=== PATIENT | female | born 1975 | race Caucasian/White ===

== ENCOUNTER 2017-10-04 18:20 | Emergency (ER) | payer OTHER ==
[~2017-10-04] VITALS: Ht 167.6 cm; Wt 68.0 kg
[~2017-10-04 18:20] MED LIST: ALBUTEROL S2.5 MG/.5 IN; ALPRAZOLAM0.25 M1 PO; AMOXICILLIN500 MG PO; CIPRO500 MG OR; CIPRO500 MG PO; CIPROFLOXACN500 MG PO; DIFLUCAN150 MG PO; LEVAQUIN500 MG PO; MULTI VIT OR; NAPROSYN500 MG PO; NO MEDS; PREDNISONE10 MG PO; ZITHROMAX250 MG OR; ZITHROMAX250 MG PO; [UNRECOGNIZED DRUG - OTHER] OR
[2017-10-04] MEDS ORDERED: VISTARIL 50MG C50 MG PO (18:59)
[2017-10-04] MEDS ORDERED: MEDDOSEPAK PO (18:59)
[2017-10-04 19:09] VITALS: BP 104/70
== END 2017-10-04 19:20 | disposition home or self-care (01) | DRG 607 ==
LOC: ED 18:20
DX: L30.9 Dermatitis, unspecified (principal); L29.9 Pruritus, unspecified

== ENCOUNTER 2017-11-25 20:43 | Emergency (ER) | payer OTHER ==
[~2017-11-25] VITALS: Ht 167.6 cm; Wt 72.0 kg
[~2017-11-25 20:43] MED LIST changes: +MEDDOSEPAK PO; +VISTARIL 50MG C50 MG PO
[2017-11-25 22:04] LABS: URINE BILIRUBIN - DIPSTICK NEGATIVE (NEGATIVE); URINE BLOOD DIPSTICK NEGATIVE (NEGATIVE); URINE COLOR YELLOW; URINE GLUCOSE - DIPSTICK NEGATIVE (NEGATIVE); URINE KETONE NEGATIVE (NEGATIVE); URINE LEUK ESTERASE NEGATIVE (NEGATIVE); URINE PH 5.5 (4.5-8.0); URINE PROTEIN - DIPSTICK NEGATIVE (NEG-TRACE); URINE SPECIFIC GRAVITY >=1.030; URINE UROBILINOGEN - DIPSTICK 0.2 E.U./dL (0.2)
[2017-11-25 22:06] LABS: URINE CLARITY CLEAR; URINE NITRITE - DIPSTICK POSITIVE (Negative)
[2017-11-25 22:13] LABS: URINE BACTERIA RARE hpf; URINE RBC 0-2 RBC/hpf (0-5); URINE SQUAMOUS EPITHELIAL CELL FEW EPI/hpf (0-FEW); URINE WBC 0-2 WBC/hpf (0-5)
[2017-11-25] MEDS ORDERED: LORTAB 1010 MG PO (23:16)
[2017-11-25] MEDS ORDERED: FLEXERIL PO (23:16)
[2017-11-25] MEDS ORDERED: MEDDOSEPAK PO (23:17)
[2017-11-25 23:41] VITALS: BP 104/72
--- NOTE | 2017-11-27 12:03 | NUR ---
Review of ED urine culture from 11/25/17, final shows >100,000 CFU/ML E.Coli sensitive to all tested antibiotics, including cephalosporins. Pt, 42yo F, presented to ED c/o lower back pain with recent hx of back pain after a fall. Denies any dysuria, fever. Pt DC with a clinical impression of lumbar disc DJD, sciatica. Based on urine culture, a rx ordered by DR Macario for keflex 500mg bid 10d was called to [facility] at [phone] and pt was informed at [phone].
== END 2017-11-25 23:43 | disposition home or self-care (01) | DRG 552 ==
LOC: ED 20:43
PROVIDERS: Emergency Medicine
DX: M47.816 Spondylosis without myelopathy or radiculopathy, lumbar region (principal); M54.41 Lumbago with sciatica, right side

== ENCOUNTER 2018-01-11 09:36 | Emergency (ER) | payer OTHER ==
[~2018-01-11] VITALS: Ht 167.6 cm; Wt 70.0 kg
[~2018-01-11 09:36] MED LIST changes: +FLEXERIL PO; +LORTAB 1010 MG PO
[2018-01-11] MEDS ORDERED: ULTRAM50 M1 PO (11:47)
[2018-01-11 12:09] VITALS: BP 129/81
== END 2018-01-11 12:09 | disposition home or self-care (01) | DRG 87 ==
LOC: ED 09:36
DX: S06.9X1A Unspecified intracranial injury with loss of consciousness of 30 minutes or less, initial encounter (principal); W22.8XXA Striking against or struck by other objects, initial encounter; Y93.89 Activity, other specified; Y92.009 Unspecified place in unspecified non-institutional (private) residence as the place of occurrence of the external cause

== ENCOUNTER 2018-03-07 12:50 | Emergency (ER) | payer OTHER ==
[~2018-03-07] VITALS: Ht 167.6 cm; Wt 75.0 kg
[~2018-03-07 12:50] MED LIST changes: +ULTRAM50 M1 PO
[2018-03-07] MEDS ORDERED: MOTRIN800 MG PO (13:32)
[2018-03-07] MEDS ORDERED: ZITHROMAX250 MG PO (13:32)
[2018-03-07] MEDS ORDERED: VENTOLIN HFA IN (13:32)
[2018-03-07] MEDS ORDERED: PREDNISONE50 MG PO (13:32)
[2018-03-07] MEDS ORDERED: TESSALON PER100 MG PO (13:32)
[2018-03-07 13:37] LABS: HEMATOCRIT 38.9 % (37.0-47.0); IMMATURE GRANULOCYTES 0.3 % (0.0-1.0); MEAN CORPUSCULAR HGB 30.8 pG CALC (26.0-32.0); MEAN CORPUSCULAR HGB CONC 33.7 g/L CALC (32.0-36.0); NEUT# 6.52 thou/uL (2.00-7.15); RED BLOOD COUNT 4.26 mill/uL (4.20-5.60); RED CELL DISTRI WIDTH 12.8 % (11.5-15.5)
[2018-03-07 13:38] LABS: HEMOGLOBIN 13.1 g/dl (12.0-16.0); MEAN CELL VOLUME 91.3 fL CALC (80.0-100.0)
[2018-03-07 13:52] LABS: ALBUMIN 4.6 g/dL (3.2-5.0); ALKALINE PHOSPHATASE 69 u/l (38-126); ANION GAP 13 (6-22 (CALC)); BILIRUBIN, TOTAL 0.4 mg/dL (0.0-1.4); BUN 9 mg/dL (7-17); BUN/CREATININE RATIO 15 (12-20 (CALC)); CARBON DIOXIDE 26 mmol/l (22-30); CHLORIDE 107 mmol/l (95-108); CREATININE 0.6 mg/dL (0.5-1.0); GFR > 60 ML/MIN (>=60 (CALC)); GFR FOR AFR.AMER. > 60 ML/MIN (>=60 (CALC)); SGOT/AST 36 u/l (14-36); SGPT/ALT 44 u/l (9-52); SODIUM 141 mmol/l (137-146); TOTAL PROTEIN 7.9 g/dL (6.3-8.2)
[2018-03-07 14:04] LABS: MYOGLOBIN 21 ng/mL (0 - 62)
[2018-03-07 14:29] VITALS: BP 118/71
== END 2018-03-07 14:41 | disposition home or self-care (01) | DRG 203 ==
LOC: ED 12:50
PROVIDERS: Emergency Medicine
DX: J20.9 Acute bronchitis, unspecified (principal); R05 Cough; R07.89 Other chest pain

== ENCOUNTER 2018-07-22 03:38 | Emergency (ER) | payer OTHER ==
[~2018-07-22] VITALS: Ht 167.6 cm; Wt 72.7 kg
[~2018-07-22 03:38] MED LIST changes: +MOTRIN800 MG PO; +PREDNISONE50 MG PO; +TESSALON PER100 MG PO; +VENTOLIN HFA IN
[2018-07-22] MEDS ORDERED: LORTAB 5/3255 MG PO (05:16)
[2018-07-22] MEDS ORDERED: VOLTAREN - GENE75 MG PO (05:16)
[2018-07-22 05:46] VITALS: BP 101/57
== END 2018-07-22 05:46 | disposition home or self-care (01) | DRG 552 ==
LOC: ED 03:38
DX: S22.080A Wedge compression fracture of T11-T12 vertebra, initial encounter for closed fracture (principal); F17.200 Nicotine dependence, unspecified, uncomplicated; W10.9XXA Fall (on) (from) unspecified stairs and steps, initial encounter; Y92.009 Unspecified place in unspecified non-institutional (private) residence as the place of occurrence of the external cause

== ENCOUNTER 2019-07-27 15:39 | Emergency (ER) | payer OTHER ==
[~2019-07-27] VITALS: Ht 167.6 cm; Wt 68.0 kg
[~2019-07-27 15:39] MED LIST changes: +LORTAB 5/3255 MG PO; +VOLTAREN - GENE75 MG PO
[2019-07-27] MEDS ORDERED: HYDROCO/APAP1 TA9 PO (16:12)
[2019-07-27 16:29] VITALS: BP 109/54
[2019-07-27] MEDS ORDERED: (None)3.5 GM OD (16:34)
== END 2019-07-27 16:57 | disposition home or self-care (01) | DRG 125 ==
LOC: ED 15:39
DX: S05.01XA Injury of conjunctiva and corneal abrasion without foreign body, right eye, initial encounter (principal)

== ENCOUNTER 2024-04-05 19:53 | Emergency (ER) | payer OTHER ==
[2024-04-05] VITALS (15 sets, daily range): BP systolic 93–130; BP diastolic 61–90
[~2024-04-05] VITALS: Ht 167.6 cm; Wt 77.0 kg
[~2024-04-05 19:53] MED LIST changes: +(None)3.5 GM OD; +HYDROCO/APAP1 TA9 PO
[2024-04-05] MEDS ORDERED: ASPIRIN 81 MG/TAB PO ONE (20:05)
[2024-04-05 20:45] LABS: BASO% 0.2 % (0-3); HEMATOCRIT 34.7 % (37.0-47.0); HEMOGLOBIN 11.4 g/dl (12.0-16.0); LYMPH% 44.6 % (15-41); MEAN CELL VOLUME 91.6 fL CALC (80.0-100.0); MEAN CORPUSCULAR HGB 30.1 pG CALC (26.0-32.0); MEAN CORPUSCULAR HGB CONC 32.9 g/dL CAL (32.0-36.0); MONO% 9.8 % (2-13); NEUT# 2.26 thou/uL (2.00-7.15); NEUT% 44.4 % (42-76); RED BLOOD COUNT 3.79 mill/uL (4.20-5.60)
[2024-04-05 21:12] LABS: ALBUMIN 4.3 g/dL (3.2-5.0); ALKALINE PHOSPHATASE 88 u/l (38-126); ANION GAP 9 (6-22 (CALC)); BILIRUBIN, TOTAL 0.5 mg/dL (0.02-1.3); BUN 15 mg/dL (7-17); BUN/CREATININE RATIO 20 (12-20 (CALC)); CARBON DIOXIDE 23 mmol/l (22-30); CHLORIDE 111 mmol/l (95-108); CPK 99 u/l (30-135); CREATININE 0.7 mg/dL (0.5-1.0); ESTIMATED GFR 108 ML/MIN (>=90 (CALC)); LIPASE 92 u/l (23-300); MAGNESIUM 1.9 mg/dL (1.6-2.3); POTASSIUM 3.8 mmol/l (3.5-5.1); SGOT/AST 48 u/l (14-36); SODIUM 139 mmol/l (137-146); TOTAL PROTEIN 7.2 g/dL (6.3-8.2)
[2024-04-06] VITALS (7 sets, daily range): BP systolic 93–114; BP diastolic 58–70
[2024-04-06 01:02] LABS: URINE BILIRUBIN - DIPSTICK Negative (NEGATIVE); URINE BLOOD DIPSTICK Negative (NEGATIVE); URINE GLUCOSE - DIPSTICK Negative (NEGATIVE); URINE KETONE Negative (NEGATIVE); URINE LEUK ESTERASE Negative (NEGATIVE); URINE PH 5.5 (4.5-8.0); URINE PROTEIN - DIPSTICK Negative (NEG-TRACE); URINE UROBILINOGEN - DIPSTICK 0.2 E.U./dL (0.2)
[2024-04-06 01:05] LABS: URINE COLOR Yellow; URINE NITRITE - DIPSTICK Positive (Negative)
[2024-04-06 01:07] LABS: URINE BACTERIA MANY hpf; URINE SQUAMOUS EPITHELIAL CELL RARE EPI/hpf (0-FEW); URINE WBC 0-2 WBC/hpf (0-5)
== END 2024-04-06 01:55 | disposition home or self-care (01) | DRG 313 ==
LOC: ED 19:53
PROVIDERS: Internal Medicine
DX: R07.9 Chest pain, unspecified (principal)